=== PATIENT | male | born 1990 | race African-American/Black ===

== ENCOUNTER 2025-02-13 14:02 | Emergency (ER) | payer SELFPAY ==
[2025-02-13 14:04] VITALS: BP 144/84; PULSE 61; RESP 15; TEMP 36.6; O2SAT 96; BMI 31.1
--- NOTE | 2025-02-13 14:53 | CT_ITS ---
PROCEDURE: ABDOMEN/PELVIS W IV CONT ONLY 02/13/2025 REASON FOR EXAM: RIGHT LOWER QUADRANT ABDOMINAL PAIN TECHNIQUE: Abdomen and pelvis CT with intravenous contrast. Coronal and Sagittal reconstruction series were provided. PATIENT PREPARATION: Per protocol ORAL CONTRAST TYPE: None. CONTRAST: Isovue-300 VOLUME: 98 mL One or more dose reduction techniques were used (e.g., Automated exposure control, adjustment of the mA and/or kV according to patient size, use of iterative reconstruction technique. RADIATION DOSE SUMMARY: CTDlvol: 19.20 mGy DLP: 1046.07 mGycm COMPARISON: None FINDINGS: Lung bases: Unremarkable Liver: Diffuse fatty infiltration. Gallbladder: Unremarkable Spleen: Normal size. Pancreas: Normal size without evidence of mass surrounding inflammation or ductal dilation. Adrenals: Unremarkable Kidneys: Normal renal sizes. No hydronephrosis. Bladder: Distended urinary bladder. Bowel: Colonic diverticulosis without diverticulitis. Appendix: Unremarkable Lymph nodes: Unremarkable Vasculature: The abdominal aorta and IVC are normal. Bones: Unremarkable. CT/Abdomen/Pelvis W IV Cont ONLY IMPRESSION: Fatty infiltration of the liver. Distention of the urinary bladder. Sigmoid diverticulosis. Reading Location: [id number]
--- NOTE | 2025-02-13 14:58 | EX.ED.DYSGE1 ---
HPI History of Present Illness Chief Complaint: GI Bleed Narrative Narrative: Chief complaint and HPI: Bright red blood per rectum. 34-year-old male with a past medical history of constipation and chronic left lower quadrant abdominal pain presents for evaluation of bright red blood per rectum. Patient states that he did not know it was abnormal to have hard stools and to frequently have to push when passing a bowel movement. He states that he recently just discovered this after talking to a friend. He states he feels like he has been suffering from constipation his whole life and just did not know it. Patient states for the past several months he has been having intermittent bright red blood per rectum with bowel movements. He states over the last 2 days the amount has increased. He denies any black or tarry stools. Not on blood thinners. Denies any fever, chills, shortness of breath, chest pain, nausea, vomiting. States he continues to have left lower quadrant abdominal pain but that this has been ongoing since he was a teenager. He has never had a colonoscopy. Review of systems: See HPI Medications: As listed on the chart Allergies: As listed on the chart PFSH: Per chart Vital signs: As listed on the chart. Reviewed. Physical exam: Gen: A&O x3, NAD Head: Normocephalic, atraumatic Eyes: No sclera icterus, conjunctiva clear ENT: Moist mucous membranes Neck: Trachea midline, No JVD CV: RRR, no murmurs, no peripheral edema Resp: Lungs CTA BL, no w/r/c GI: Abd soft, non-distended, non-tender, no r/r/g Rectal: Normal external examination. No evidence of hemorrhoids or fissures. Normal tone and sensation. No masses, fluctuance, or tenderness. No pain out of proportion. No blood on gloved finger : No CVA tenderness Musc: Full ROM, no deformity Skin: Warm, dry Neuro: Alert, oriented, grossly intact, sensation intact Psych: Cooperative, appropriate mood and affect [facility] Allergy/AdvReac Type Severity Reaction Status Date / Time bee venom protein (honey Allergy Severe Anaphylaxis Verified 02/13/25 14:04 bee) (bees) Social History Smoking Status: Unknown if ever smoked EXAM Physical Exam Const Vital Signs: 02/13/25 14:04 02/13/25 16:00 Temperature 97.9 F Temperature Source Temporal Pulse Rate 61 56 L Respiratory Rate 15 Blood Pressure 144/84 H 131/79 H Blood Pressure Mean 104 95 Pulse Ox 96 99 Oxygen Delivery Method Room Air MDM MDM MDM Narrative Medical decision making narrative: 34-year-old male with a past medical history of constipation and chronic left lower quadrant abdominal pain presents for evaluation of bright red blood per rectum. Differential diagnosis includes but is not limited to hemorrhoidal bleeding, constipation, diverticulosis, suspect less likely diverticulitis, anemia. NS bolus ordered. Laboratory workup ordered including CT abdomen pelvis ordered. CBC without leukocytosis or anemia. CMP unremarkable. Lactic acid unremarkable. Lipase unremarkable. Stool occult is positive for blood. CT abdomen pelvis shows fatty infiltration of the liver. Distention of the urinary bladder. Sigmoid diverticulosis without diverticulitis. Patient's intermittent bright red blood per rectum is likely secondary to diverticulosis and his constipation. Vitals are stable. He has not had any bright red blood per rectum since this morning when he had a hard bowel movement. He is asymptomatic except for his chronic left lower quadrant abdominal pain that he has had for years. No anemia. Plan is for discharge home and follow-up outpatient with GI. Strict return precautions were explained such as worsening GI bleed, lightheadedness, fatigue, nausea, vomiting, increased abdominal pain. He confirmed understanding of the plan. Patient stable to discharge home. Will send prescription for MiraLAX and stool softeners. Impression: 1. Right red blood per rectum 2. Diverticulosis 3. History of chronic constipation, untreated Lab Data Labs: Laboratory Results - last 24 hr 02/13/25 02/13/25 14:33 15:00 WBC 7.7 RBC 4.70 Hgb 15.3 Hct 43.9 MCV 93.4 MCH 32.6 H MCHC 34.9 RDW Std Deviation 40.6 RDW Coeff of Inga 11.8 Plt Count 267 MPV 9.8 Immature Gran % (Auto) 0.300 Neut % (Auto) 66.6 Lymph % (Auto) 26.7 [place] % (Auto) 4.8 Eos % (Auto) 1.2 Baso % (Auto) 0.4 Absolute Neuts (auto) 5.1 Absolute Lymphs (auto) 2.05 Nucleated RBC % 0 Sodium 136 Potassium 3.8 Chloride 102 Carbon Dioxide 22.6 Anion Gap 11 BUN 12 Creatinine 1.05 Estim Creat Clear Calc 131.90 Est GFR (MDRD) Non-Af 94 BUN/Creatinine Ratio 11.1 Glucose 142 H Lactic Acid 1.4 Calcium 9.2 Total Bilirubin 0.52 AST 24 ALT 39 Alkaline Phosphatase 54 Total Protein 7.3 Albumin 4.5 Globulin 2.8 Albumin/Globulin Ratio 1.6 Lipase 25 Radiography Diagnostic Testing: Clinical Impression(s) from Imaging Studies Abdomen/Pelvis CT 02/13/25 14:53 IMPRESSION: Fatty infiltration of the liver. Distention of the urinary bladder. Sigmoid diverticulosis. Reading Location: [facility] Discharge Plan Triage Chief Complaint: GI Bleed ED Provider: Milo Armenta Dx/Rx/DC Orders Primary Care Provider: [facility] Doctor,Out of Referrals: [facility] Doctor,Out of [Primary Care Provider] - Print Language: Japanese
[2025-02-13] MEDS: 0.9% Normal Saline (1000mL) 1,000 ML 999 ML IV (14:59)
[2025-02-13 15:11] LABS: Absolute Lymphocyte Count 2.05 X10^3/uL (0.83-4.51); Absolute Neutrophil Count 5.1 X10^3/uL (2.0-7.7); Basophil# 0.03 X10^3/uL; Basophil% 0.4 % (0-1); Eosinophil# 0.09 X10^3/uL; Eosinophils% 1.2 % (0-5); Hematocrit 43.9 % (40-54); Hemoglobin 15.3 g/dL (13.0-16.5); Lymphocyte # 2.05 X10^3/ul (0.83-4.51); Lymphocyte % 26.7 % (19-41); Mean Corp Hgb Conc 34.9 g/dL (32-36); Mean Corpuscular Hgb 32.6 pg (27.0-32.0); Mean Corpuscular Volume 93.4 fL (80-94); Mean Platelet Vol. 9.8 fl (6.2-12.0); Monocyte# 0.37 X10^3/uL; Monocyte% 4.8 % (0-10); NRBC Flagged by Analyzer 0 % (0-5); Neutrophil # 5.12 X10^3/uL (2.7-7.7); Neutrophil % 66.6 % (47-70); Platelet Count 267 K/mm3 (150-450); RBC Distribution Width CV 11.8 % (11.6-14.6); RBC Distribution Width SD 40.6 fl (35.1-43.9); White Blood Count 7.7 K/mm3 (4.4-11.0)
[2025-02-13 15:41] LABS: Lactic Acid 1.4 mmol/L (0.0-2.0)
[2025-02-13 15:44] LABS: ALB/GLOB Ratio 1.6 RATIO (0.9-2.4); AST(SGOT) 24 U/L (<=37); Alanine Aminotransfer ALT/SGPT 39 U/L (<=46); Albumin, Serum 4.5 g/dL (3.5-5.0); Alkaline Phosphatase 54 U/L (40-129); Anion Gap 11 (5-15); BUN 12 mg/dL (4-19); BUN/Creat Ratio 11.1 RATIO (10-20); Calcium,Total 9.2 mg/dL (7.6-11.0); Carbon Dioxide 22.6 mmol/L (21.0-32.0); Chloride 102 mmol/L (98-108); Creatinine, Serum 1.05 mg/dL (0.70-1.20); EST Glomerular Filtration Rate 94 (>60); Globulin 2.8 g/dL (2.2-4.2); Glucose 142 mg/dL (70-99); Lipase 25 U/L (13-75); Potassium 3.8 mmol/L (3.3-5.1); Protein, Total 7.3 g/dL (5.9-8.4); Sodium Level 136 mmol/L (133-145); Total Bilirubin 0.52 mg/dL (0.00-1.30)
[2025-02-13 16:00] VITALS: BP 131/79; PULSE 56; O2SAT 99
[2025-02-13 16:43] VITALS: BP 133/74; PULSE 52; RESP 18; O2SAT 97
== END 2025-02-13 16:44 | disposition home or self-care (01) ==
PROVIDERS: Emergency Provider Surgery; Referring Provider Surgery; Visit Provider Surgery
DX: K62.5 Hemorrhage of anus and rectum (principal); K57.30 Diverticulosis of large intestine without perforation or abscess without bleeding; N32.89 Other specified disorders of bladder; K76.0 Fatty (change of) liver, not elsewhere classified; K59.09 Other constipation
CPT/HCPCS: 74177; 80053; 82274; 83605; 83690; 85025; 96360; 99282; Q9967; A4216